=== PATIENT | male | born 1980 | race Caucasian/White ===

== ENCOUNTER 2016-07-29 14:19 | Emergency (ER) | payer OTHER ==
[2016-07-29 14:32] VITALS: PULSE 114; RESP 18; TEMP 98; O2SAT 97
[2016-07-29 14:44] VITALS: BP 133/81
--- NOTE | 2016-07-29 15:15 | C.PDOC ---
History Of Present Illness Pt c/o toothache. He states that he is taking Ibuprofen and Augmentin but without relief. He states he has an appointment with his dentist in 5 days. Time Seen by Provider: 07/29/16 14:36 Chief Complaint (Nursing): Dental Pain History Per: Patient Onset/Duration Of Symptoms: Days (3) Current Symptoms Are (Timing): Still Present Severity: Moderate Dental/Oral: 1 - big cavity. Pain. Quality: Positive for: "Pain" Additional History Per: Prior Records Past Medical History Reviewed: Historical Data, Nursing Documentation, Vital Signs Vital Signs: Last Vital Signs Temp 98 F 07/29/16 14:29 Pulse 114 H 07/29/16 14:29 Resp 18 07/29/16 14:29 BP 133/81 07/29/16 14:29 Pulse Ox 97 07/29/16 14:29 - Medical History PMH: No Chronic Diseases Family History: States: Unknown Family Hx - Social History Hx Alcohol Use: No Hx Substance Use: No Review Of Systems Except As Marked, All Systems Reviewed And Found Negative. Constitutional: Negative for: Fever, Weakness ENT: Positive for: Mouth Pain. Negative for: Mouth Swelling, Throat Pain, Throat Swelling Cardiovascular: Negative for: Chest Pain Respiratory: Negative for: Shortness of Breath Gastrointestinal: Negative for: Vomiting Musculoskeletal: Negative for: Neck Pain Skin: Negative for: Rash Neurological: Negative for: Weakness, Numbness, Seizures, Altered Mental Status Physical Exam - Physical Exam Appears: Non-toxic, No Acute Distress Skin: Normal Color, Warm, Dry, No Rash Head: Atraumatic, Normacephalic Eye(s): bilateral: Normal Inspection, PERRL, EOMI Oral Mucosa: Moist, No Drooling, No Trismus Tongue: Normal Appearing Lips: Normal Appearing Teeth: Caries, Tender To Palpation (of right lower 2nd molar) Gingiva: Normal Appearing, No Abscess Throat: Normal Neck: Normal ROM, Supple Lymphatic: No Adenopathy Extremity: Normal ROM, No Deformity Neurological/Psych: Oriented x3, Normal Speech, Normal Cognition, Normal Cranial Nerves, Normal Motor, Normal Sensation ED Course And Treatment O2 Sat by Pulse Oximetry: 97 Pulse Ox Interpretation: Normal Reassessment Condition: Improved Disposition Counseled Patient/Family Regarding: Diagnosis, Need For Followup, Rx Given - Disposition Disposition: HOME/ ROUTINE Disposition Time: 15:16 Condition: IMPROVED Additional Instructions: Continue taking your antibiotics and Ibuprofen. Follow up with your dentist as soon as possible. Return to the ER if you develop fever, redness, swelling, pus drainage, worsening of symptoms or if you have any other concerns. Prescriptions: traMADol/Acetaminophen [Ultracet 325 MG-37.5 MG] 1 tab PO Q4 PRN #30 tab PRN Reason: Pain, Severe (8-10) Instructions: Toothache (ED) - Clinical Impression Clinical Impression: Toothache
== END 2016-07-29 15:23 | disposition home or self-care (01) ==
LOC: C.ER 14:19
DX: K08.89 Other specified disorders of teeth and supporting structures (principal)